=== PATIENT | female | born 1985 | race Two or more races ===

== ENCOUNTER 2018-04-19 19:30 | Observation (INO) | payer BC, OTHER ==
[~2018-04-19] VITALS: Ht 160 cm; Wt 63.0 kg
[~2018-04-19 19:30] MED LIST: NIF10C PO; PREN-145 OR; PROG1POW XX
== END 2018-04-19 21:08 | disposition home or self-care (01) | DRG 781 ==
LOC: LDRP 19:30
PROVIDERS: ADMIT Specialist; ATTEND Specialist
DX: O24.419 Gestational diabetes mellitus in pregnancy, unspecified control (principal); O60.03 Preterm labor without delivery, third trimester; Z3A.34 34 weeks gestation of pregnancy
CPT/HCPCS: 59025; 81002; 82948; 82962; G0378

== ENCOUNTER 2018-04-23 20:51 | Observation (INO) | payer BC, OTHER | END 2018-04-23 21:44 | disposition home or self-care (01) | DRG 781 | LOC: LDRP 20:51 | PROVIDERS: ADMIT Specialist; ATTEND Specialist | DX: O24.419 Gestational diabetes mellitus in pregnancy, unspecified control (principal); O60.03 Preterm labor without delivery, third trimester; O26.873 Cervical shortening, third trimester; Z3A.34 34 weeks gestation of pregnancy | CPT/HCPCS: 59025; 81002; 82948; 82962; G0378 ==

== ENCOUNTER → 2018-05-03 | Outpatient (CLI) | payer BC | END | disposition home or self-care (01) | LOC: LAB 16:04 | PROVIDERS: ATTEND Obstetrics & Gynecology | DX: Z34.03 Encounter for supervision of normal first pregnancy, third trimester (principal); Z3A.36 36 weeks gestation of pregnancy | CPT/HCPCS: 87081 ==